=== PATIENT | female | born 1955 | race Caucasian/White ===

== ENCOUNTER → 2024-01-22 12:12 | Outpatient (REF) | payer MEDICARE, OTHER, SELFPAY | LOC: HWRAD 12:12 | PROVIDERS: ATTENDING PHYSICIAN Internal Medicine Rheumatology; FAMILY PHYSICIAN Nurse Practitioner Family | DX: M06.09 Rheumatoid arthritis without rheumatoid factor, multiple sites (principal); R06.02 Shortness of breath | CPT/HCPCS: 71046; 73120; 73630 ==

== ENCOUNTER → 2024-02-06 15:41 | Outpatient (REF) | payer MEDICARE, OTHER, SELFPAY | LOC: PAVMRI 15:41 | PROVIDERS: ATTENDING PHYSICIAN Physician Assistant Medical | DX: R53.1 Weakness (principal); R29.2 Abnormal reflex | CPT/HCPCS: 72148 ==

== ENCOUNTER → 2024-04-04 10:13 | Outpatient (REF) | payer MEDICARE, OTHER, SELFPAY | LOC: HWRAD 10:13 | PROVIDERS: ATTENDING PHYSICIAN Nurse Practitioner Family | DX: R06.2 Wheezing (principal) | CPT/HCPCS: 71046 ==

== ENCOUNTER → 2024-06-10 14:26 | Outpatient (REF) | payer MEDICARE, OTHER, SELFPAY | LOC: HWRAD 14:26 | PROVIDERS: ATTENDING PHYSICIAN Physician Assistant; FAMILY PHYSICIAN Nurse Practitioner Family | DX: E05.90 Thyrotoxicosis, unspecified without thyrotoxic crisis or storm (principal); E05.00 Thyrotoxicosis with diffuse goiter without thyrotoxic crisis or storm | CPT/HCPCS: 76536 ==

== ENCOUNTER → 2024-09-18 07:19 | Outpatient (REF) | payer MEDICARE, OTHER, SELFPAY | LOC: PAVMRI 07:19 | PROVIDERS: ATTENDING PHYSICIAN Physician Assistant Surgical; FAMILY PHYSICIAN Nurse Practitioner Family | DX: M54.12 Radiculopathy, cervical region (principal); M54.16 Radiculopathy, lumbar region; M54.50 Low back pain, unspecified; Z98.1 Arthrodesis status; M51.369 Other intervertebral disc degeneration, lumbar region without mention of lumbar back pain or lower extremity pain | CPT/HCPCS: 72141 ==

== ENCOUNTER 2025-07-01 09:05 | Emergency (ER) | payer MEDICARE, OTHER, SELFPAY ==
[2025-07-01] VITALS (11 sets, daily range): BP systolic 109–151; BP diastolic 61–94; PULSE 68–74; BMI 34.6
--- NOTE | 2025-07-01 10:20 | ED.GENMED ---
History of Present Illness
<NANNETTE Geronimo - Last Filed: 07/01/25 15:55>
General
Chief Complaint: Fainting/Passed Out
Source: patient
Exam Limitations: none
Time Seen by Provider: 07/01/25 10:11
Nursing documentation reviewed up to this point in time: agreed with
History of Present Illness
History of Present Illness:
70-year-old female presents to the ER for evaluation. Patient has a past medical history of hypertension hyperlipidemia reports she woke up around 4 AM on her living room floor. She feels that she woke when her head hit the floor.. She does
not recall how she got there or what happened. She does live with her who has dementia however her did not hear her.
She does complain of a headache now. She denies any nausea or vomiting. She does have soreness in her neck and back. She denies any chest pain/shortness of breath.
Phy Exam
<NANNETTE Geronimo - Last Filed: 07/01/25 15:55>
General Physical Exam
General Presentation: no apparent distress
General age: appears stated age
General Skin: warm and dry
General Habitus: normal
General Mental: alert
General Hydration: appears well hydrated
Eye Exam
Eye Exam: PERRL and EOMI
Eye Exam General: PERRL: bilateral and EOM intact: bilateral
Pupil Exam: Bilateral: round and reactive
Cardiovascular Exam
Cardiovascular Exam: regular rate/rhythm, no murmur and normal peripheral pulses
Pulmonary Exam
Pulmonary Exam: lungs clear and no respiratory distress
Gastrointestinal Exam
Gastrointestinal Exam: normal bowel sounds and non tender
Neurological Exam
Neurological Exam: alert and oriented x3
Musculoskeletal Exam
Musculoskeletal Exam: full ROM and other (No obvious head injury on exam mildly tender through cervical spine and lumbar region , nml inspection )
Skin Exam
Skin Exam: normal color and warm/dry
Psychiatric Exam
Psychiatric Exam: normal mood/affect
Course
<NANNETTE Geronimo - Last Filed: 07/01/25 15:55>
Orders/Labs/Results
Orders:
Orders
07/01/25 09:06
Electrocardiogram (*1) Urgent
Reason for Study: Syncope
07/01/25 09:07
EKG- Treatment ONCE
07/01/25 10:19
CT Head W/o Iv Contrast Urgent
Comment:
Reason For Exam: trauma
07/01/25 10:20
CT Cervical Spine W/o Iv Contr Urgent
Comment:
Reason For Exam: trauma
Cardiac Monitoring- Treatment ONCE
IV Insert/Care/Rem.- Treatment PRN
0.9% Sodium Chloride 1000 ml [Nss] 1,000 ml IV BOLUS
Lumbar Spine Complete, 4 View [CR Lumbar Spine Comp Min 4 Vw*] Urgent
Comment:
Reason For Exam: trauma
07/01/25 11:00
Basic Metabolic Panel Urgent
Complete Blood Count/With Diff Urgent
07/01/25 12:52
Potassium Urgent
07/01/25 13:34
Orthostatic VS- Treatment ONCE
Abnormal Lab Results
07/01/25
11:00
Absolute Monos (auto) 0.8 H 10^3/uL
(0.1-0.6)
Carbon Dioxide 32 H mmol/L
(22-30)
07/01/25 11:00
07/01/25 12:52
Vital Signs
Initial and Last Documented VS:
Initial Vital Signs
Temp Pulse Resp Pulse Ox
98.3 F 70 16 100
07/01/25 09:16 07/01/25 09:16 07/01/25 09:16 07/01/25 09:16
Last Documented Vital Signs
Temp Pulse Resp BP Pulse Ox
98.3 F 70 16 142/71 100
07/01/25 09:16 07/01/25 14:00 07/01/25 14:00 07/01/25 14:15 07/01/25 14:15
Candy Supervisor consulted with Physician
Candy Supervisor consulted with physician?: Yes
Name of Physician Consulted: Tashi
<Mal Akins MD - Last Filed: 07/01/25 12:13>
Orders/Labs/Results
Orders:
Orders
07/01/25 09:06
Electrocardiogram (*1) Urgent
Reason for Study: Syncope
07/01/25 09:07
EKG- Treatment ONCE
07/01/25 10:19
CT Head W/o Iv Contrast Urgent
Comment:
Reason For Exam: trauma
07/01/25 10:20
CT Cervical Spine W/o Iv Contr Urgent
Comment:
Reason For Exam: trauma
Cardiac Monitoring- Treatment ONCE
IV Insert/Care/Rem.- Treatment PRN
0.9% Sodium Chloride 1000 ml [Nss] 1,000 ml IV BOLUS
Lumbar Spine Complete, 4 View [CR Lumbar Spine Comp Min 4 Vw*] Urgent
Comment:
Reason For Exam: trauma
07/01/25 11:00
Basic Metabolic Panel Urgent
Complete Blood Count/With Diff Urgent
07/01/25 12:52
Potassium Urgent
07/01/25 13:34
Orthostatic VS- Treatment ONCE
Abnormal Lab Results
07/01/25
11:00
Absolute Monos (auto) 0.8 H 10^3/uL
(0.1-0.6)
Carbon Dioxide 32 H mmol/L
(22-30)
07/01/25 11:00
07/01/25 12:52
Vital Signs
Initial and Last Documented VS:
Initial Vital Signs
Temp Pulse Resp Pulse Ox
98.3 F 70 16 100
07/01/25 09:16 07/01/25 09:16 07/01/25 09:16 07/01/25 09:16
Last Documented Vital Signs
Temp Pulse Resp BP Pulse Ox
98.3 F 70 16 142/71 100
07/01/25 09:16 07/01/25 14:00 07/01/25 14:00 07/01/25 14:15 07/01/25 14:15
<NANNETTE Geronimo - Last Filed: 07/01/25 15:55>
MDM/Problems Addressed
Differential Diagnosis Includes:
Not limited to syncopal episode, head injury, anemia dehydration
MDM/Problems Addressed:
Patient has documented a 62-year-old female who had a syncopal episode around 4 AM she was in her living room woke up as her head was hitting the ground however has no recollection as to how she got in the living room. She presents well-appearing
does complain of a headache. She is on blood thinners. CT head and cervical spine are negative.. She has minimal low back pain x-rays are negative. EKG is unremarkable
Labs are unremarkable. She is asymptomatic now has no complaints is very well-appearing.
Patient with negative orthostatic vital signs. Patient is very well-appearing here in the ER. Patient was evaluated by ED physician.
Patient is well-appearing with no acute findings we will plan to discharge home. Patient is comfortable with this plan of care. Discussed close outpatient follow PCP.
<NANNETTE Geronimo - Last Filed: 07/01/25 15:55>
*Radiology
Radiology exam reviewed: radiology read reviewed
*Pulse Oximetry
SaO2: 100
Oxygen Mode of Delivery: Room air
Patient hypoxic: no
*EKG
Interpreted by ED Provider?: Yes
Heart Rate: 72
Rate: normal
Rhythm: sinus
Ischemia: no ischemia
*Critical Care Note
Total Time (30-74mins, 75-104mins- exclusive of procedures): Not Applicable
ED Attending Note
<NANNETTE Geronimo - Last Filed: 07/01/25 15:55>
-
Portions of this chart may have been created with voice recognition software.� Occasional wrong word or��sound alike� substitutions may have occurred due to the inherent limitations of voice recognition software.
<Mal Akins MD - Last Filed: 07/01/25 12:13>
ED Attending Note
Patient seen and examined by attending physician: Yes
I performed the substantive portion of visit, reviewed & personally made and approve the management plan that is documented in note by myself or CORINA.: Yes
ED Attending Note:
Patient woke up in the middle the night. Walking to her living room. She apparently passed out or went down although recalls hitting her head on the floor. Complaining of some headache neck pain and low back pain. No chest pain shortness of
breath or other complaints. She has had some recurring dizziness over the last 6 months or so. At baseline now.
On exam patient is nontoxic in no distress. Normocephalic atraumatic. Mild paracervical tenderness. Mild lower lumbar tenderness. No rebound or guarding no mass or hernia. Nonfocal. Speech normal. EKG is stable. Labs are stable. CT scan
pending. Patient description may have been a syncopal episode although slightly unusual that she recalls hitting her head on the floor. If all testing is stable we will make a joint decision of admission and monitoring versus outpatient follow-up.
Low yield on finding a definitive further explanation in the hospital.
Discharge Plan
Departure
Patient Disposition: Home (Routine Discharge)
Date of Disposition: 07/01/25
Time of Disposition: 14:54
Patient with high blood pressure during this ER visit?: Yes
Condition: Fair
Covid-19: Not Applicable
Discharge Problem:
Syncope, Head injury
Instructions: Head injury in adults, Syncope (Fainting) (DC), BLOOD PRESSURE
Prescriptions:
No Action
metformin 500 mg Tablet
500 mg PO BID
meloxicam 7.5 mg Tablet
7.5 mg PO DAILY
hydrochlorothiazide 12.5 mg Capsule
12.5 mg PO DAILY
valsartan 160 mg Tablet
160 mg PO DAILY
escitalopram oxalate [Lexapro] 20 mg Tablet
20 mg PO DAILY
rosuvastatin [Crestor] 20 mg Tablet
20 mg PO DAILY
Mounjaro 7.5 mg/0.5 mL Pen Injector
7.5 mg SC QWEEK
Rx Instructions:
wednesdays
Actemra 200 mg/10 mL (20 mg/mL) Solution
200 mg IV Q4W
Referrals:
Yina Tello CRNP [Family Provider, Family Practice]
Activity Restrictions/Additional Instructions:
As discussed please follow-up with a family doctor the next of days for reevaluation of your symptoms. Call today to make an appointment. Stay well hydrated. Your labs are unremarkable your CAT scans are negative and your x-rays are negative for
fracture.
Return if any worsening of symptoms
Interventions
Interventions:
*Risk Screen - Suicide Last Done: 07/01/25 11:17
*General Assessment Last Done: 07/01/25 11:17
*Neglect/Abuse Screening Last Done: 07/01/25 11:17
*ED- Fall Risk Assessment Last Done: 07/01/25 11:17
*Nursing Disposition Last Done: 07/01/25 14:58
ED- Cardiac Assessment Last Done: 07/01/25 11:17
ED- Neurological Assessment Last Done: 07/01/25 11:17
Discharge Date and Time
Discharge Date/Time: 07/01/25 14:58
Print Language: MACEDONIAN
[2025-07-01] MEDS: NSS 1000 IV (10:59)
[2025-07-01 11:13] LABS: Hematocrit 44.2 % (37.0-47.0); Hemoglobin 15.2 g/dL (12.0-16.0); Mean Corp Hgb Conc. 34.4 g/dL (33.0-37.0); Mean Corpuscular Volume 88.2 fL (81.0-99.0); Nucleated Red Blood Cells % 0 %; Platelet Count 243 10^3/uL (130-400); Red Cell Dist. Width 13.1 % (11.5-14.5)
[2025-07-01 11:36] LABS: Blood Urea Nitrogen 13 mg/dl (7-17); Calcium 9.7 mg/dl (8.4-10.2); Carbon Dioxide 32 mmol/L (22-30); Chloride 101 mmol/L (98-107); Estimated Creatinine Clearance 91 ml/min; Glucose 93 mg/dl (70-99); Sodium 137 mmol/L (135-145); eGFR > 60.00
[2025-07-01 13:29] LABS: Potassium 4.4 mmol/L (3.5-5.1)
== END 2025-07-01 14:58 | disposition home or self-care (01) ==
LOC: EMR 09:05
PROVIDERS: Nurse Practitioner; EMERGENCY PHYSICIAN Emergency Medicine; FAMILY PHYSICIAN Nurse Practitioner Family
DX: R55 Syncope and collapse (principal); S09.90XA Unspecified injury of head, initial encounter; I10 Essential (primary) hypertension; E78.5 Hyperlipidemia, unspecified; Z79.01 Long term (current) use of anticoagulants; X58.XXXA Exposure to other specified factors, initial encounter; Y92.008 Other place in unspecified non-institutional (private) residence as the place of occurrence of the external cause
CPT/HCPCS: 99284; 96360; 70450; 72110; 72125; 80048; 84132; 85025; 93005